=== PATIENT | male | born 1985 | race Caucasian/White ===

== ENCOUNTER 2018-11-26 11:57 | Emergency (ER) | payer MEDICAID ==
[2018-11-26] MEDS: HYDROCODONE/APAP (5/325) TAB PO (12:33)
== END 2018-11-26 14:07 | disposition home or self-care (01) ==
LOC: FTE 11:57
DX: S02.401A Maxillary fracture, unspecified side, initial encounter for closed fracture (principal); Y04.0XXA Assault by unarmed brawl or fight, initial encounter
CPT/HCPCS: 70450; 70486; 99284-25